=== PATIENT | female | born 1965 | race Caucasian/White ===

== ENCOUNTER → 2019-04-18 | Outpatient (CLI) | payer MEDICAID | LOC: MHCPAIN 12:48 | DX: M54.5 Low back pain (principal); M54.16 Radiculopathy, lumbar region; M96.1 Postlaminectomy syndrome, not elsewhere classified; M46.1 Sacroiliitis, not elsewhere classified | CPT/HCPCS: G0463 ==

== ENCOUNTER → 2019-05-03 | Outpatient (CLI) | payer MEDICAID | LOC: MHCPAIN 07:49 | DX: M54.5 Low back pain (principal); M53.3 Sacrococcygeal disorders, not elsewhere classified; M96.1 Postlaminectomy syndrome, not elsewhere classified ==

== ENCOUNTER → 2019-08-23 | Outpatient (CLI) | payer MEDICAID | LOC: MHCPAIN 08-09 16:44 | DX: M47.817 Spondylosis without myelopathy or radiculopathy, lumbosacral region (principal); M54.5 Low back pain; M96.1 Postlaminectomy syndrome, not elsewhere classified; M53.3 Sacrococcygeal disorders, not elsewhere classified ==

== ENCOUNTER → 2019-09-20 | Outpatient (CLI) | payer MEDICAID | LOC: MHCPAIN 10:11 | DX: M47.817 Spondylosis without myelopathy or radiculopathy, lumbosacral region (principal); M54.5 Low back pain; M53.3 Sacrococcygeal disorders, not elsewhere classified; G89.29 Other chronic pain; M96.1 Postlaminectomy syndrome, not elsewhere classified | CPT/HCPCS: J2250; J3010 ==

== ENCOUNTER → 2019-09-24 | Outpatient (CLI) | payer MEDICAID | LOC: MHCPAIN 12:25 | DX: M47.817 Spondylosis without myelopathy or radiculopathy, lumbosacral region (principal); M54.5 Low back pain | CPT/HCPCS: J1100; J2250; J3010 ==

== ENCOUNTER → 2019-12-10 | Outpatient (CLI) | payer MEDICAID | LOC: MHCPAIN 12:40 | DX: M47.817 Spondylosis without myelopathy or radiculopathy, lumbosacral region (principal); M54.5 Low back pain; M96.1 Postlaminectomy syndrome, not elsewhere classified; M53.3 Sacrococcygeal disorders, not elsewhere classified | CPT/HCPCS: G0463 ==

== ENCOUNTER → 2019-12-20 | Outpatient (CLI) | payer MEDICAID | LOC: MHCPAIN 10:11 | DX: M47.818 Spondylosis without myelopathy or radiculopathy, sacral and sacrococcygeal region (principal); M53.3 Sacrococcygeal disorders, not elsewhere classified; M46.1 Sacroiliitis, not elsewhere classified; M96.1 Postlaminectomy syndrome, not elsewhere classified | CPT/HCPCS: G0260; J1040; Q9967 ==